=== PATIENT | female | born 1985 | race Caucasian/White ===

== ENCOUNTER 2023-11-02 08:05 | Outpatient (CLI) | payer OTHER, SELFPAY ==
--- OUTSIDE RECORDS SUMMARY | 2023-11-02 08:09 | XMS_ITS | Clinical Summary ---
Author Organization [employer] [facility] Address [place], [place] [address] Care Team Providers Care Support Analyst Name Role Phone Devi Palencia CNM, JOSAIHC Primary Care Provide r Allergies No known active allergies Medications Medication Sig Dispensed Refills Start Date End Date Status PNV [id number] -epa 3.33 mg iron- 0.33 mg chew Take 2 gum by mouth once daily. 0 10/19/2017 Active omeprazole (PRILOSEC) 20 mg Delayed-Release capsule Take 1 capsule by mouth once daily before a meal. 0 02/07/2019 Active labetaloL (TRANDATE) 100 mg tabletIndications:Ess ential (primary) hypertension Take 2 tablets by mouth 2 times daily. 360 tablet 09/05/2019 Active Hospital, Clinic, or Other Facility Administered Medication Ordered Dose Route Frequency Start Date End Date Status levonorgestrel intrauterine device 1 Device (MIRENA)Indications:Encounter for insertion of mirena IUD 1 Device IU Q 5 YEARS 11/08/2018 Active Active Problems Problem Noted Date Diagnosed Date IUD (intrauterine device) in place 11/08/2018 Overview: Mirena iud placed. Essential hypertension 09/20/2018 Resolved Problems Problem Noted Date Diagnosed Date Resolved Date care and examination 09/20/2018 09/20/2018 (normal spontaneous vaginal delivery) 09/04/2018 09/20/2018 Positive GBS test 08/19/2018 09/20/2018 Piriformis syndrome of right side 06/14/2018 07/12/2018 Varicose veins during , antepartum 06/14/2018 09/04/2018 Chronic hypertension in 04/28/2018 09/20/2018 Overview: Taking Labetalol 200 mg twice daily with good control of pressures 8 weeks gestation of 02/07/2018 02/07/2018 Encounter for supervision of normal in third trimester 02/07/2018 09/20/2018 Overview: Guillermina Rueda, /FOB: Natanael Sofia They have [place] 5 year old son Backup: JLB Backup visits: Risk factors: Chronic hypertension - taking Labetalol; SAB on 10/28/2017 (a few weeks prior to this 's conception); history of LEEP x 2; former smoker Obstetric History T1 L1 SAB1 TAB0 Ectopic0 Multiple0 Live Births1 Estimated Date of Delivery: 09/14/18 BMI: 33 Blood type: A+ Antibody screen: neg Hgb: 12.2 Rubella: immune Varicella: had chickenpox Cystic fibrosis:declined Treponema: neg HBsAG: neg HIV: neg Urine culture: insign Quad screen: declined GTT: passed GBS: Tdap: 07/01/2018 Flu shot: 03/15/2018 Pain med: epidural Baby's gender/name: boy, Eduardo Sofia ? Circ: yes Hepatitis B, vit K, erythromycin OK: yes Feeding method: breast Spontaneous 10/28/2017 018 Less than 8 weeks gestation of 10/08/2017 11/12/2017 Overview: Guillermina Rueda, /FOB: Natanael Sofia Backup: Backup visits: Risk factors: essential hypertension History of leep Obstetric History T1 L1 SAB1 TAB0 Ectopic0 Multiple0 Live Births1 Estimated Date of Delivery: 05/28/18 BMI:33 Blood type: Antibody screen: Hgb: Rubella: Varicella: history of chickenpox Cystic fibrosis: declined Treponema: HBsAG: HIV: Urine culture: Quad screen: GTT: GBS: Tdap: Flu shot: Pain med: epidural Baby's gender/name: Circ: yes Hepatitis B, vit K, erythromycin OK: yes Feeding method: breast, didn't go well last time Gallstones 05/11/2017 10/08/2017 Epigastric pain 04/11/2017 10/08/2017 Essential (primary) hypertension 07/10/2016 04/28/2018 Immunizations Name Administration Dates Next Due Human Papilloma Virus Vaccine 02/01/2011, 011,08/02/2010 Influenza, IIV3 (Age >=3 years) 06/21/2012 Influenza, IIV4 04/12/2018 Tdap 06/28/2018,06/20/2007 Family History Medical History Relation Name Comments Hypertension Brother Hypertension Father Atrial fibrillation Mother Hypertension Mother Stroke Paternal Grandfather Good Health Son 1 Martell 10/08/17 Good Health Son 2 Eduardo 09/04/2018 Relation Name Status Comments Brother Alive Father Alive Mother Alive Paternal Grandfather Son 1 Martell Alive Son 2 Eduardo Alive Social History Tobacco Use Types Packs/Day Years Used Date Smoking Tobacco: Former Smokeless Tobacco: Never Alcohol Use Standard Drinks/Week Comments No 0 (1 standard drink = 0.6 oz pur e alcohol) PHQ-2 Answer Date Recorded PHQ-2 Score 0 08/10/2018 Sex and Gender Information Value Date Recorded Sex Assigned at Not on file Gender Identity Not on file Sexual Orientation Not on file Obstetrics History Para Term AB IAB SAB Ectopic Multiple Livin g Live Births 4 2 2 0 2 0 2 0 0 2 2 Date Outcome GA Total Labor Labor/2nd/3rd Weight Sex Delivery Anes PTL Darlene A1 A5 Name Cl in 08/28 12 SAB 4w0 d U SPONTANEO US 10/30 Term 39w 0d 24h 00m M Vag-Spont Epidu ral Micaela ng Paxto n Complications:None 10/28 SAB 9w5 d U SPONTANEO US 09/04 Term 38w 4d 0h 03m/0h 06m 2.87 kg (6 lb 5.1 oz) M Vag Epidu ral N Micaela ng 9 9 HELGR EN,BB (CASSIDY Beltran) Devi Rosado dt Complications:None Delivery Location:[facility] Last Filed Vital Signs Vital Sign Reading Time Taken Comments Blood Pressure 128/78 02/07/2019 8:45 AM CDT Pulse 67 02/07/2019 8:45 AM CDT Temperature 36.6 ??C (97.8 ??F) 02/07/2019 8:45 AM CD T Respiratory Rate 18 09/20/2018 2:19 PM CDT Oxygen Saturation 97% 02/07/2019 8:45 AM CDT Inhaled Oxygen Concentration - - Weight 87.5 kg (192 lb 14.4 oz) 02/07/2019 8:45 AM CDT Height 162.6 cm (5' 4) 01/10/2019 10:2 6 AM CDT Body Mass Index 33.11 01/10/2019 10:26 AM CDT Plan of Treatment Health Maintenance Due Date Last Done Comments Hepatitis C screening for age 18-79 08/19/2003 Depression screening for age 12+ 11/09/2019 11/08/2018, 09/20/2018, 02/07/2018, Additional history exists BMI (ht and wt on same day) for age 18+ 01/11/2020 01/10/2019, 11/08/2018, 09/20/2018, Additional history exists COVID-19 vaccine series (2022- season) 2023 Influenza for age 9-49 02/10/2024 04/12/2018, 2012 Pap test for age 21-65 10/28/2026 , 10/28/2021, 10/27/2015, Additional history exists Tetanus booster 06/28/2028 06/28/2018, 06/20/2007 HIV for age 15-65 Completed 02/07/2018, 10/08/2017 Tdap Completed 06/28/2018, 06/20/2007 Pneumococcal series for age 6-64 Aged Out No longer eligible based on patient's age to complete this topic Procedures Procedure Name Priority Date/Time Associated Diagnosis Comments REGULATORY AFFAIRS DIRECTOR THIN PREP PAP SCREEN IMAGED Routine 10/28/2021 10:58 AM CDT ANTI HIV 1/2 Routine 02/07/2018 10:30 AM CDT Encounter for supervision of other normal in first trimester from Last 3 Months or Most Recently Relevant to Health Maintenance Results * REGULATORY AFFAIRS DIRECTOR THIN PREP PAP SCREEN IMAGED (10/28/2021 10:58 AM CDT) Case Report Gynecologic Cytology Report ? Case: [id number] ? Authorizing Provider: ??Bebe Cardona MD ??Collected: ? 10/28/2021 1058 ? Ordering Location: ? [facility] ?Received: ?10/28/2021 1642 ? First Screen: ?Artie Last ? Specimen: ?REGULATORY AFFAIRS DIRECTOR ThinPrep Vial Screening, Cervical/Vaginal ? 11/15/2021 1:52 PM CDT [facility] INTERPRETATION/ RESULT NEGATIVE FOR INTRAEPITHELIAL LESION OR MALIGNANCY (NIL) (none) 11/15/2021 1:52 PM CDT [facility] IMEN ADEQUACY Satisfactory for evaluation No endocervical component seen 11/15/2021 1:52 PM CDT [facility] HPV REQUEST HPV not requested 2021 1:52 PM CDT [facility] Additional Information 11/15/2021 1:52 PM CDT [facility] Comment: Interpreted at [facility] - [address], [place] [address] Automated Review Successful 11/15/2021 1:52 PM CDT [facility] Comment:Specimen processed s uccessfully by automated speech therapist technician device, ThinPrep Imaging System, [employer] Note The pap test is a screening technique, not a diagnostic procedure. It is used primarily to screen for squamous cancers and precursor lesions. Published studies have shown that it is subject to both false negative and false positive results. The pap test should not be used as the sole means to diagnose or exclude pre-malignant and malignant lesions. 11/15/2021 1:52 PM CDT [facility] Other (Cervical/Vagina l) 10/28/2021 10:58 AM CDT 10/28/2021 4:42 PM CDT Bebe Cardona MD PATHOLOGY/CYTOLO [facility] [address] [place] [address], [place] * ANTI HIV 1/2 (02/07/2018 10:30 AM CDT) HIV CATEGORY Nonreactive Nonreactive 02/07/2018 8:55 PM CDT [facility] Blood BLOOD SPECIMEN / Unknown Venipuncture / Unknown 02/07/2018 10:30 AM CDT 02/07/2018 10:36 AM CDT Devi Palencia CNM, JOSIAHC SEND OUTS Performing Organization Address [facility] Co de Phone Number [facility] [address] [place] [address], [place] [phone] from Last 3 Months or Most Recently Relevant to Health Maintenance Advance Directives * Full Code (Latest Code Status on File) Date Activated Date Inactivated Comments 09/05/2018 8:32 PM 09/07/2018 12:08 AM * Full Code Date Activated Date Inactivated Comments 09/04/2018 5:39 PM 09/05/2018 8:32 PM Question Answer Comments Code Status Discussion: Discussed * Full Code Date Activated Date Inactivated Comments 09/04/2018 4:06 AM 09/04/2018 5:39 PM Question Answer Comments Code Status Discussion: Discussed * Full Code Date Activated Date Inactivated Comments 09/04/2018 2:51 AM 09/04/2018 4:06 AM Question Answer Comments Code Status Discussion: Discussed * Full Code Date Activated Date Inactivated Comments 10/28/2017 11:29 PM 10/29/2017 12:01 PM Care Teams Support Analyst Relationship Specialty Start Date End Date Devi Palencia, SANDRA, MINE ANALYST-C [address] [place] [id number] PCP - General Certified Nurse Director Of Public Works 02/04/19
== END 2023-11-02 08:06 | disposition home or self-care (01) ==
LOC: NFLDREF 08:06
PROVIDERS: PCP Family Medicine; Visit Provider Family Medicine
DX: I10 Essential (primary) hypertension (principal); E78.5 Hyperlipidemia, unspecified
CPT/HCPCS: 80053; 80061; 84443

== ENCOUNTER 2024-10-31 07:38 | Outpatient (CLI) | payer OTHER, SELFPAY | END 2024-10-31 07:39 | disposition home or self-care (01) | LOC: NFLDREF 11-06 11:00 | PROVIDERS: PCP Family Medicine; Referring Provider Family Medicine; Visit Provider Family Medicine | DX: E78.5 Hyperlipidemia, unspecified (principal); I10 Essential (primary) hypertension | CPT/HCPCS: 80053; 80061 ==